=== PATIENT | male | born 1975 | race Caucasian/White ===

== ENCOUNTER 2020-11-19 14:57 | Outpatient (REF) | payer BC, OTHER, SELFPAY ==
[2020-11-19 18:19] LABS: MANUAL DIFF FLAG NO
[2020-11-19 18:22] LABS: Basophils Percent Auto 0.6 % (0-2); Eosinophils Absolute Auto 0.1 X10*3/uL (0.0-0.4); Hematocrit 45.2 % (42-52); Hemoglobin 15.6 g/dl (14.0-18.0); Imm Gran Abs Auto 0.01 X10*3/uL (0.00-0.03); Imm Gran Pct Auto 0.2 % (0.0-0.4); Lymphocytes Percent Auto 31.6 % (20-40); Mean Corpuscular HGB Conc 34.5 g/dl (31.0-36.0); Mean Corpuscular Hemoglobin 31.5 pg (27.0-33.0); Mean Corpuscular Volume 91.1 fL (80-98); Mean Platelet Volume 10.9 fL (9.4-12.4); Monocytes Absolute Auto 0.6 X10*3/uL (0.1-1.2); Monocytes Percent Auto 9.1 % (2-11); Neutrophils Absolute Auto 3.6 X10*3/uL (2.0-8.3); Neutrophils Percent Auto 56.5 % (45-73); Platelet Count 268 X10*3/uL (160-400); Red Blood Count 4.96 X10*6/uL (4.60-5.80); Red Cell Distribution Width 12.4 % (11.0-16.0); White Blood Count 6.5 X10*3/uL (4.8-10.8)
[2020-11-19 18:52] LABS: Alanine Aminotransferase 36 U/L (0-40); Albumin Level 4.4 g/dL (3.5-5.0); Alkaline Phosphatase 83 U/L (39-117); Anion Gap 14 (12-20); Aspartate Amino Transferase 21 U/L (5-37); Blood Urea Nitrogen 11 mg/dL (9-16); C Reactive Protein 0.29 mg/dL (< or = 0.50); Calcium 9.3 mg/dL (8.4-10.2); Carbon Dioxide 23 mmol/L (22-29); Chloride 106 mmol/L (96-108); Estimated Glomerular Filt Rate > 60; Glucose Random 82 mg/dL (60-115); Potassium 4.1 mmol/L (3.3-5.1); Sodium 139 mmol/L (135-145); Total Protein 7.2 g/dL (6.5-8.0)
[2020-11-19 19:14] LABS: Thyroid Stimulating Hormone 0.81 uIU/mL (0.32-4.0)
[2020-11-20 13:40] LABS: Immunoglobulin A 265 mg/dL (47-310)
[2020-11-20 21:46] LABS: Transglutaminase Ab IgG 1 U/mL; Transglutaminase IgA 1 U/mL
[2020-11-21 04:42] LABS: Gliadin Deamidated IgA Ab 6 Units; Gliadin Deamidated IgG Ab 2 Units
[2020-11-24 23:01] LABS: Endomysial IgA Antibody Negative (Negative)
== END 2020-11-19 14:58 | disposition home or self-care (01) ==
LOC: HO.MANLDS 14:57
PROVIDERS: PCP Physician Assistant; Visit Provider Physician Assistant
DX: R19.4 Change in bowel habit (principal)
CPT/HCPCS: 36415; 80053; 82784; 83516; 84443; 85025; 86140; 86255; 86256

== ENCOUNTER 2020-11-28 11:32 | Outpatient (REF) | payer BC, OTHER, SELFPAY ==
[2020-11-28 12:23] LABS: OBS1 NEGATIVE (NEGATIVE); OBS2 NEGATIVE (NEGATIVE)
[2020-11-28 12:24] LABS: OBS Int Ctl Valid YES; OBS3 NEGATIVE (NEGATIVE)
[2020-12-02 21:00] LABS: Calprotectin, Fecal 8 mcg/g
== END 2020-11-28 11:33 | disposition home or self-care (01) ==
LOC: HO.LNP 11:32
PROVIDERS: Visit Provider Physician Assistant
DX: R19.4 Change in bowel habit (principal)
CPT/HCPCS: 82270; 83993; 87045; 87046

== ENCOUNTER 2024-06-08 11:16 | Outpatient (REF) | payer BC, SELFPAY ==
--- OUTSIDE RECORDS SUMMARY | 2024-06-08 13:11 | XMS_ITS | Data Portability ---
Author Organization [facility] Home Service Address [address] [place] [address] Assessment Encounter Date Assessment Date Assessment LastModified by Organization Details LastModified Time 03/28/2020 03/28/2020 [id number] [place] [id number] (HOUSECLEANER) MDM MODERATE MUST MEET 2 OUT OF 3 ELEMENTS: PROBLEMS, DATA OR RISK ELEMENT 1: PROBLEMS ADDRESSED OR 2 OR MORE STABLE CHRONIC ILLNESSES OR 1 UNDIAGNOSED NEW PROBLEM OR OR ELEMENT 2: DATA MUST MEET 1 OF 3 CATEGORIES CATEGORY 1: REVIEW OF PRIOR EXTERNAL NOTES, REVIEW OF RESULTS, ORDERING OF EACH TEST, ASSESSMENT REQUIRING INDEPENDENT HISTORIAN OR CATEGORY 2: OR CATEGORY 3: ELEMENT 3: RISK RISK OF COMPLICATIONS AND/OR MORBIDITY OR MORTALITY OF PATIENT MANAGEMENT PROVIDER MUST THOROUGHLY DOCUMENT EACH ELEMENT THAT IS COVERED Not available 03/28/2020 15:03:49 06/08/2024 06/08/2024 discussed variou s supplements for wgt lifting and joint [place] [address] [place] [address] (HOUSECLEANER) MDM MODERATE MUST MEET 2 OUT OF 3 ELEMENTS: PROBLEMS, DATA OR RISK ELEMENT 1: PROBLEMS ADDRESSED 1 OR MORE CHRONIC ILLNESS WITH EXACERBATION OR 2 OR MORE STABLE CHRONIC ILLNESSES OR 1 UNDIAGNOSED NEW PROBLEM OR 1 ACUTE ILLNESS W/SYMPTOMS OR 1 ACUTE COMPLICATED INJURY ELEMENT 2: DATA MUST MEET 1 OF 3 CATEGORIES CATEGORY 1: REVIEW OF PRIOR EXTERNAL NOTES, REVIEW OF RESULTS, ORDERING OF EACH TEST, ASSESSMENT REQUIRING INDEPENDENT HISTORIAN OR CATEGORY 2: INDEPENDENT INTERPRETATION OF TESTS BY ANOTHER PHYSICIAN OR SPECIALIST OR CATEGORY 3: DISCUSSION OF MGT OR TEST INTERPRETATION W/EXTERNAL PHYSICIAN OR SPECIALIST ELEMENT 3: RISK RISK OF COMPLICATIONS AND/OR MORBIDITY OR MORTALITY OF PATIENT MANAGEMENT PROVIDER MUST THOROUGHLY DOCUMENT EACH ELEMENT THAT IS COVERED Not available 06/08/2024 11:10:17 Plan of Treatment Reminders Order Date Submit Date Provider Last Modified By Organization Details Last Modified Time Details Appointments FOLLOW UP 15 2024 10:45A M DR ASH Not available Not available Not available Lab lipid panel, blood 2024 025 [facility], [address] [place] [address], [id number], 06/08/2024 11:13:50 CMP, serum or plasma 2024 025 [facility], [address] [place] [address], [id number], 06/08/2024 11:13:49 CBC w/ auto diff 2024 025 [facility], [address] [place] [address], [id number], 06/08/2024 11:13:50 PSA, serum or plasma 2024 025 [facility], [address] [place] [address], [id number], 06/08/2024 11:13:50 lipid panel, blood 2022 023 [facility] (Centralized Electronic Ordering - All Locations), Patient Can Go To The Location Of Their Choice, 11/22/2022 12:25:26 CMP, serum or plasma 2022 023 [facility] (Centralized Electronic Ordering - All Locations), Patient Can Go To The Location Of Their Choice, 11/22/2022 12:25:26 CBC w/ auto diff 2022 023 [facility] (Centralized Electronic Ordering - All Locations), Patient Can Go To The Location Of Their Choice, 11/22/2022 12:25:25 PSA, serum or plasma 2022 023 [facility] (Centralized Electronic Ordering - All Locations), Patient Can Go To The Location Of Their Choice, [id number] 11/22/2022 12:25:25 hemoglobi n A1c, QN, blood 2022 023 [facility] (Centralized [facility] Ordering - All Locations), Patient Can Go To The Location Of Their Choice, [id number] 11/22/2022 12:25:25 CMP, serum or plasma 2020 [facility], [address] [place] [address], [id number], 11/20/2020 12:58:00 CBC w/ auto diff 2020 [facility], [address] [place] [address], [address], 11/19/2020 14:51:17 TSH, serum or plasma 2020 021 [facility], [address] [place] [address], [address], 11/20/2020 12:58:00 C-reactiv e protein, quantitat maikel, serum or plasma 2020 021 [facility], [address] [place] [address], [place], [address], 11/20/2020 12:58:00 celiac disease comprehen sive panel, serum 2020 [facility], [address] [place] [address], [address], 11/21/2020 11:53:34 culture, stool 2020 [facility], [address] [place] [address], [address], 12/01/2020 11:36:08 calprotec tin, stool 2020 [facility], [address] [place] [address], [address], 12/03/2020 11:30:47 fecal occult blood, stool 2020 [facility], [address] [place] [address], [place], [address], 12/01/2020 11:40:50 CBC w/ auto diff 2020 [facility], [address] [place] [address], [address], 03/28/2020 15:06:49 CMP, serum or plasma 2020 [facility], [address] [place] [address], [place], [address], 03/28/2020 15:06:49 lipase, serum or plasma 2020 021 [facility], [address] [place] [address], [address], 03/28/2020 15:06:49 amylase, serum or plasma 2020 [facility], [address] [place] [address], [address], 03/28/2020 15:06:49 Referral gastroent erologist referral - Dr Gonsales 2020 021 [facility], [address] [place] [address], [address], 11/21/2020 08:25:00 Procedures None recorded. Surgeries None recorded. Imaging CT, heart, w/o contrast, w/ coronary calcium score [email or web address] [facility], [facility] [place], [address], 06/08/2024 11:28:33 US, echocardi ogram, transthor acic, complete, w/ color flow [address] [facility], [facility] [place], [address], 06/08/2024 11:28:33 US, groin - left inguinal hernia [email or web address] [facility], [address] [place], [address], 11/23/2022 08:21:11 US, abdomen 2020 021 [email or web address] Not available 04/11/2020 11:01:52 Medication Orders escitalop rishabh 20 mg tablet 2022 023 [id number], [address] [place], [address], 11/22/2022 12:18:32 Medrol (Paulo) 4 mg tablets in a dose pack 2021 022 [place] [address] [id number], [address] [place], [address], 11/22/2022 12:05:14 Patient TargetsNo targets recorded. 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 Problems Name Problem SNOMED Code Status Onset Date Resolution Date Notes Provider Name and Address Organization Details Recorded Time Vertigo 963270934 Active 2017 Isaac Ash DO [address] [place], [address], [place] [facility] 8 16:00:19 Depressi ve disorder 55433503 Active 2018 ASHER Gore [address] [place], [address], [facility] 9 16:30:30 Otalgia of left ear 5715968907 Active 2021 LALITO LYON [address] [place], [address], [facility] 2 11:17:52 Left inguinal hernia 338595585 Active 2022 LALITO LYON [address] [place], [address], [facility] 3 12:12:03 Repair of patent ductus arterios us Completed 202406/08/2024 Isaac Ash DO [address] [place] [address], [address], [facility] 5 11:09:25 Dyspnea on exertion 22709463 Active 2024 Isaac Ash DO [address] [place] [address], [address], [facility] 5 11:09:47 Hypercho lesterol emia 73436665 [facility] 15:35:30 Problem Notes None recorded. Medical Equipment None Reported. Allergies No known drug allergies Medications Name Sig Start Date Stop Date Status Note LastModified by Organization Details LastModified Time amoxicillin 500 mg capsule 12/04 completed Not Available Not Available Not Available albuterol sulfate 2.5 mg/3 mL (0.083 %) solution for nebulizatio n 08/09 completed Not Available Not Available Not Available azithromyci n 250 mg tablet 08/09 completed Not Available Not Available Not Available ciprofloxac in 500 mg tablet Take 1 tablet every 12 hours by oral route for 10 days. 05/15 completed Not Available Not Available Not Available amoxicillin 500 mg tablet Take 1 tablet every 8 hours by oral route for 7 days. 12/04 completed Not Available Not Available Not Available Zofran 4 mg tablet Take 1 tablet twice a day by oral route as needed. 12/04 completed Not Available Not Available Not Available meclizine 25 mg tablet 08/09 completed Not Available Not Available Not Available benzonatate 100 mg capsule 08/09 completed Not Available Not Available Not Available prednisone 50 mg tablet 08/09 completed Not Available Not Available Not Available docusate sodium 100 mg capsule TAKE 1 CAPSULE BY MOUTH TWO TIMES A DAY 11/22 completed Not Available Not Available Not Available omeprazole 20 mg capsule,del ayed release TAKE TWO CAPSULES BY MOUTH EVERY DAY 11/22 completed Not Available Not Available Not Available methylpredn isolone 4 mg tablets in a dose pack USE DIRECTED BY MD OR PACKAGE INSTRUCTI ONS 11/22 completed Not Available Not Available Not Available morphine 15 mg immediate release tablet TAKE ONE TABLET BY MOUTH EVERY 6 HOURS NEEDED FOR PAIN 11/22 completed Not Available Not Available Not Available ondansetron 4 mg disintegrat ing tablet DISSOLVE ONE TABLET BY MOUTH EVERY 6 HOURS NEEDED FOR NAUSEA 11/22 completed Not Available Not Available Not Available oxycodone 5 mg tablet TAKE 1 TABLET BY MOUTH EVERY 4 HOURS NEEDED 11/22 completed Not Available Not Available Not Available escitalopra m 10 mg tablet TAKE 1 AND 1/2 TABLETS DAILY 11/19 completed Not Available Not Available Not Available escitalopra m 20 mg tablet TAKE 1 TABLET DAILY active Not Available Not Available No t Available Vitals Date Recorded Body weight Heart rate Oxygen saturation Oxygen saturation in Arterial blood by Pulse oximetry Systolic blood pressure Diastolic blood pressure Provider Name and Address Organization Details Last Updated DateTime 1 329020. 74 g 82 /min 97 % 97 % 124 mm[Hg] 76 mm[Hg] LALITO LYON [address] [place], [address] , [facility] 1 14:26:58 Date Recorded Body height Oxygen saturation Oxygen saturation in Arterial blood by Pulse oximetry Heart rate Systolic blood pressure Diastolic blood pressure Provider Name and Address Organization Details Last Updated DateTime 2 172.72 cm 98 % 98 % 80 /min 130 mm[Hg] 70 mm[Hg] Rita Gannon [facility] 2 10:58:14 Date Recorded Body weight Heart rate Oxygen saturation Oxygen saturation in Arterial blood by Pulse oximetry Systolic blood pressure Diastolic blood pressure Provider Name and Address Organization Details Last Updated DateTime 3 767310. 22 g 78 /min 99 % 99 % 122 mm[Hg] 84 mm[Hg] Carol Overton [facility] 3 12:08:03 Date Recorded Body height Body mass index (BMI) Body weight Heart rate Oxygen saturation Oxygen saturation in Arterial blood by Pulse oximetry Systolic blood pressure Diastolic blood pressure Provider Name and Address Organization Details Last Updated DateTime 5 172.72 cm 35.7 kg/m2 014642. 21 g 88 /min 98 % 98 % 144 mm[Hg] 68 mm[Hg] Isaac Ash, DO [address] [place], [address] 5 10:43:13 Social History Question Answer Notes LastModified by Organizat ion Details LastModified Time Tobacco Smoking Status Never Smoker Not Available [facility] 01/08/2020 03:36:24 What Was The Date Of Your Most Recent Tobacco Screening? 06/08/2024 Information not available 06/08/2024 Sex: Unknown Functional Status None recorded. Mental Status None recorded. Family History Relationship Description Onset Age of this Age Resolved Age Notes LastModified by Organization Details LastModified Time Father Family history of cancer of colon eszahira Not available 2017 13:30:25 Mother Type 2 diabetes mellitus [facility] Not available 2017 13:30:35 Medical History No medical history recorded. Immunizations Vaccine Type Date Status Note Provider Nam e and Address Organization Details Recorded Time COVID-19, mRNA, LNP-S, PF, 30 mcg/0.3 mL dose 07/21/2020 completed Not Available [facility] 3 11:29:10 COVID-19, mRNA, LNP-S, PF, 30 mcg/0.3 mL dose 08/14/2020 completed Not Available [facility] 3 11:29:10 Past Encounters Encounter ID Performer Location Encounter Start Date Encounter Closed Date Diagnosis/Indication Diagnosis SNOMED-CT Code Diagnosis ICD10 Code Diagnosis Note [id number] Mikayla Mckeon NP, S [facility] [address] [facility] [address] [address] 08/09/2017 15:23:21 08/10/2017 08:22:40 On examination - pupils unequal 135573221 H57.02 decreased peripheral vision, nausea, syncope, vertigo Syncope 677671898 R55 Nausea 586690167 R11.0 Vertigo 642407251 R42 await CT scan, continue prn meclizine [id number] Isaac Ash [facility] [address] [facility] [address] 01/20/2018 15:39:19 01/20/2018 16:07:45 Vertigo 828739397 R42 [id number] Isaac Ash [facility] [address] [facility] [place] [address] 03/10/2018 09:18:17 03/10/2018 11:18:59 Vertigo 592734958 R42 did not get any relief or help from PT worthless referral patsy newman we need to have him be shown how to do russ richardson etc Hypercholesterolemia 136 85278 E78.00 will need lab orderd Depressive disorder 0212 1287 F32.1 [id number] Namrata SofíaYANIQUEGIANCARLO [facility] [address] [facility] [address] 12/04/2018 16:01:57 12/04/2018 16:35:36 Pain in testicle 50049355 N50.819 Epididymitis 39933458 N4 5.1 Depressive disorder 3548 1867 F32.9 well controlled Hypercholesterolemia 136 74583 E78.00 working on diet Vertigo 581494549 R42 has been quiet for a little over a year [id number] Isaac Ahs [facility] [address] [facility] 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 Depressive disorder 4357 5607 F32.1 [id number] Isaac Ash DO [facility] [address] [facility] [address],[place] [address] 03/28/2020 09:18:28 03/31/2020 11:37:35 Abdominal pain 00711968 R10.9 will work up for the gall bladder Hypercholesterolemia 136 57485 E78.00 will need lab orderd Vertigo 742962079 R42 did not get any relief or help from PT worthless referral patsy newman we need to have him be shown how to do russ richardson etc Depressive disorder 2985 9831 F32.1 [id number] LALITO LYON [facility] [address] [facility] [address] [address] 11/19/2020 14:17:01 11/19/2020 15:52:52 Constipation 50251919 K59.00 will fu with GI referral as well for repeat colonoscop y Altered marcela wel function 00152396 R19.4 will start with lab workpull [place] [id number] LALITO LYON [facility] [address] [facility],[place] [address] 06/24/2021 10:51:43 06/24/2021 11:49:42 Otalgia of left ear 8987054888 H92.02 will start on medrol and sudafed [id number] LALITO LYON [facility] [address] [facility] [address] [address] 11/22/2022 11:56:13 11/22/2022 13:00:24 Left inguinal hernia 144962951 K40.90 agreed to US groin to confirm diagnosis Depressive disorder 5773 2147 F32.1 stable Hypercholesterolemia 136 72608 E78.2 will set up with routine lab work that he is due for [id number] Isaac Ash [facility] [address] [facility] [address],[place] [address] 06/08/2024 10:32:04 06/08/2024 11:28:33 Hypercholesterolemia 90114518 E78.2 will need lab orderd Depressive disorder 3547 106 F32.1 neg Dyspnea on exertion 6084 5006 R06.09 a Health Concerns Section Related Observation LastModified by Organization Detai ls LastModified Time None Recorded Concern Status LastModified by Organization Details LastModified Time None Recorded Advance Directives Directive None Recorded Payers Encounter Date Sequence Insurance Name Policy Number Policy Luque Covered Member ID Luque Member ID Guarantor Name 03/28/2020 1 [facility] [id number] Lindsay Rosalva [id number] Juan Evansak 03/28/2020 2 [facility] [id number] Juan Rosalva [id number] Juan Rosalva 11/19/2020 1 [place] [id number] Juan Rosalva [id number] Juan Rosalva 11/19/2020 2 [facility] [id number] Juan De Jesus Rosalva [id number] Juan Rosalva 06/24/2021 1 [place] [id number] Juan Rosalva [id number] Juan Rosalva 06/24/2021 2 [facility] [id number] Juan De Jesus Rosalva [id number] Juan Rosalva 11/22/2022 1 [place] [id number] Juan Rosalva [id number] Juan Rosalva 11/22/2022 2 [facility] [id number] 01 Juan De Jesus Rosalva [id number] Juan Rosalva 06/08/2024 1 [place] [id number] Juan Rosalva [id number] Juan Rosalva Notes Date Note Type Note Provider Name and Address Organization Details Recorded Time 03/28/19 21 text/htm l patient is evaluated via tele/video assessment per patient consent during current pandemic relates that he has had a pain in lower right side of chest wall sharp pain sudden onset comes and goes pain is located just below rib cage on right states has been relating that he has been eating a lousy diet has been having indigestion and bloated also certain foods might be affecting but not sure Isaac Ash, DO [address] [facility], [place], [address], [facility] 03/28/2020 15:04:44 11/20/19 21 text/htm l c/o change in bowel habits the patient reports that his father has a history of colon cancerstarted colonoscopy around 39 years old, has not had a repeat scan doneprobably needs it every 5 years given history the patient reports his stools are long and thin, dyeing machine back tender in colorhas a bowel movement about one to three times per dayhas been going for the past month prior to this he was going about once per daythe patient reports that no change in diet, no new foods no new medications or supplements the patient reports that he is straining to go to the bathroomthe patient noticed blood in the stool about a week ago, bright red blood per rectum no pain, no itching LALITO LYON [address] [place], [address], [facility] 11/19/2020 14:55:18 06/25/19 22 text/htm l c/o left ear pain the patient reports that his left ear has been bothering him since Tuesdaythe patient reports that crackling in the left ear and painthe patient denies hearing loss the patient reports pain in the left earright ear is fine has tried OTC ear drops and hydrogen peroxide without affect LALITO LYON [address] [place], [address], [facility] 06/24/2021 11:28:53 11/23/19 23 text/htm l c/o left sided groin pain reports new onset groin pain for the last 6 daysno excess weight liftingleft side inguinal noted hernia of the left sidesmall, presents more with straining with valsalva maneuver agreed to US to confirm diagnosis LALITO LYON [address] [place], [address], [facility] 11/22/2022 12:22:10 06/09/19 25 text/htm l Care Management - HyperlipidemiaReported bypatient.Control:usually well controlled; improving; at goal Complications:no coronary artery disease; no heart attack; no cardiovascular disease; no pancreatitis; no stroke relates that he has been doing well overall but has noticed that he has had a few episodes of severe sob when he really pushed it Isaac Ash, DO [address] [facility], [place], [address], [facility] 06/08/2024 11:14:47
--- OUTSIDE RECORDS SUMMARY | 2024-06-08 13:11 | XMS_ITS | Continuity of Care Document ---
Author Organization [facility], [facility] Address [address] [place] [address] Assessment Encounter Date Assessment Date Assessment LastModified by Organization Details LastModified Time 06/08/2024 06/08/2024 discussed variou s supplements for wgt lifting and [place] [address] [place] [address] (CIVIL CADD TECHNICIAN) MDM MODERATE MUST MEET 2 OUT OF [...] available Lab lipid panel, blood 2024 025 [facility], [address] [place] [address], [place], [address], 06/08/2024 11:13:50 CMP, serum or plasma 2024 025 [facility], [address] [place] [address], [address], 06/08/2024 11:13:49 CBC w/ auto diff 2024 025 [facility], [address] [facility], [place], [address], 06/08/2024 11:13:50 PSA, serum or plasma 2024 025 [facility], [address] [facility], [place], [address], 06/08/2024 11:13:50 Referral None recorded. Procedures None recorded. Surgeries None recorded. Imaging CT, heart, w/o contrast, w/ coronary calcium score 2024 025 [email or web address] [facility], [address] [place], [address], 06/08/2024 11:28:33 US, echocardi ogram, transthor acic, complete, w/ color flow 2024 025 [email or web address] [facility], [address] [place], [address], 06/08/2024 11:28:33 Medication Orders None recorded. Patient TargetsNo targets recorded. Patient InstructionsNo instructions recorded. Reason for Referral None Reported. Problems Name Problem SNOMED Code Status Onset Date Resolution Date Notes Provider Name and Address Organization Details Recorded Time Vertigo 757204491 Active 2017 Isaac Ash DO [address] [place], [address], [facility] 8 16:00:19 Depressi ve disorder 10292206 Active 2018 ASHER Gore [address] [place], [address], [facility] 9 16:30:30 Otalgia of left ear 1227249527 Active 2021 LALITO LYON [address] [place], [address], [facility] 2 11:17:52 Left inguinal hernia 001659561 Active 2022 LALITO LYON [address] [place], [address], [facility] 3 12:12:03 Repair of patent ductus arterios us Completed 202406/08/2024 Isaac Ash, DO [address] [place], [address], [facility] 5 11:09:25 Dyspnea on exertion 32600019 Active 2024 Isaac Ash, [address] [place], [address], [facility] 5 11:09:47 Hypercho lesterol emia 96229576 [facility] 8 15:35:30 Problem Notes None recorded. Medical [...] No t Available Vitals Date Recorded Body height Body mass index (BMI) Body weight Heart rate Oxygen saturation Oxygen saturation in Arterial blood by Pulse oximetry Systolic blood pressure Diastolic blood pressure Provider Name and Address Organization Details Last Updated DateTime 5 172.72 cm 35.7 kg/m2 060598. 21 g 88 /min 98 % 98 % 144 mm[Hg] 68 mm[Hg] Isaac Ash, DO [address] [place], [address] [place] [address] Internal Medicine 5 10:43:13 Social History Question Answer Notes LastModified by Organizat ion Details LastModified Time Tobacco Smoking Status Never Smoker Not Available [facility] 01/08/2020 03:36:24 What Was The Date Of Your Most Recent Tobacco Screening? 06/08/2024 Information not available 06/08/2024 Sex: Unknown Functional Status None recorded. Mental Status None recorded. Family History Relationship Description Onset Age of this Age Resolved Age Notes LastModified by Organization Details LastModified Time Father Family history of cancer of colon arlet Not available 2017 13:30:25 Mother Type 2 diabetes mellitus arlet Not available 2017 13:30:35 Medical History No medical history recorded. Immunizations Vaccine Type Date Status Note Provider Nam e and Address Organization Details Recorded Time COVID-19, mRNA, LNP-S, PF, 30 mcg/0.3 mL dose 07/21/2020 completed Not Available [facility] 3 11:29:10 COVID-19, mRNA, LNP-S, PF, 30 mcg/0.3 mL dose 08/14/2020 completed Not Available [facility] 3 11:29:10 Past Encounters Encounter ID Performer Location Encounter Start Date Encounter Closed Date Diagnosis/Indication Diagnosis SNOMED-CT Code Diagnosis ICD10 Code Diagnosis Note [id number] Isaac Ash DO [facility] [address] [facility],[place] [address] 06/08/2024 10:32:04 06/08/2024 11:28:33 Hypercholesterolemia 67128124 E78.2 will need lab orderd Depressive disorder 3548 9007 F32.1 neg Dyspnea on exertion 6084 5006 R06.09 a Health Concerns Section Related Observation LastModified by Organization Detai ls LastModified Time None Recorded Concern Status LastModified by Organization Details LastModified Time None Recorded Payers Encounter Date Sequence Insurance Name Policy Number Policy Luque Covered Member ID Luque Member ID Guarantor Name 06/08/2024 1 [place] [place] [id number] Juan Blackwell [id number] Juan Blackwell Notes Date Note Type Note Provider Name and Address Organization Details Recorded Time 06/09/19 25 text/htm l Care Management - HyperlipidemiaReported bypatient.Control:usually well controlled; improving; at goal Complications:no coronary artery disease; no heart attack; no cardiovascular disease; no pancreatitis; no stroke relates that he has been doing well overall but has noticed that he has had a few episodes of severe sob when he really pushed it Isaac Ash DO [address] [place] [address], [address], [facility] 06/08/2024 11:14:47
--- OUTSIDE RECORDS SUMMARY | 2024-06-08 13:11 | XMS_ITS | Data Portability ---
Author Organization [facility], , [facility] Address [address] [place] [address] Assessment No assessment recorded. Plan of Treatment Reminders Order Date Submit Date Provider Last Modified By Organization Details Last Modified Time Details Appointments None record ed. Lab None record ed. Referral None record ed. Procedures None record ed. Surgeries None record ed. Imaging None record ed. Medication Orders None record ed. Patient TargetsNo targets recorded. Patient InstructionsNo instructions recorded. Reason for Referral None Reported. Results Created Date Observation Date Name Description Value Unit Range Abnormal Flag Note LastModifiedBy Organization Detail LastModifiedTime Result Notes None recorded. Procedures Surgical History Date Name Laterality Status Provider Name and Address Organization Details Recorded Time Zi Gonsales - Colonoscopy completed Arpit Gonsales MD [address] [place] [address], [phone], [facility] 12/03/2015 11:49:03 Zi Gonsales - Upper Endoscopy completed Arpit Gonsales MD [address] [place] [address], [phone], [facility] 12/03/2015 11:47:30 Imaging Results None recorded. Procedure Notes None recorded. Medical Equipment None Reported. Vitals None Recorded Social History None recorded. Functional Status None recorded. Mental Status None recorded. Family History Nothing Reported. Medical History No medical history recorded. Past Encounters Encounter ID Performer Location Encounter Start Date Encounter Closed Date Diagnosis/Indication Diagnosis SNOMED-CT Code Diagnosis ICD10 Code Diagnosis Note [id number] Arpit Gonsales MD [facility], [address] [address] 12/03/2015 10:32:44 12/03/2015 13:33:53 Health Concerns Section Related Observation LastModified by Organization Detai ls LastModified Time None Recorded Concern Status LastModified by Organization Details LastModified Time None Recorded Advance Directives Directive None Recorded Payers Encounter Date Sequence Insurance Name Policy Number Policy Luque Covered Member ID Luque Member ID Guarantor Name 12/03/2015 1 [facility] [id number] Juan Blackwell [id number] Juan Blackwell
[2024-06-08 13:36] LABS: MANUAL DIFF FLAG NO
[2024-06-08 13:42] LABS: Basophils Absolute Auto 0.1 X10*3/uL (0.0-0.2); Basophils Percent Auto 0.6 % (0-2); Eosinophils Absolute Auto 0.2 X10*3/uL (0.0-0.4); Eosinophils Percent Auto 1.6 % (0-4); Hematocrit 46.6 % (42.0-52.0); Hemoglobin 15.7 g/dl (14.0-18.0); Imm Gran Abs Auto 0.02 X10*3/uL (0.00-0.03); Imm Gran Pct Auto 0.2 % (0.0-0.4); Lymphocytes Absolute Auto 1.9 X10*3/uL (1.2-4.9); Lymphocytes Percent Auto 20.7 % (20-40); Mean Corpuscular HGB Conc 33.7 g/dl (31.0-36.0); Mean Corpuscular Hemoglobin 30.8 pg (27.0-33.0); Mean Corpuscular Volume 91.4 fL (80.0-98.0); Mean Platelet Volume 10.5 fL (9.4-12.4); Monocytes Absolute Auto 0.8 X10*3/uL (0.1-1.2); Monocytes Percent Auto 8.5 % (2-11); Neutrophils Absolute Auto 6.4 x10*3/uL (2.0-8.3); Neutrophils Percent Auto 68.4 % (45-73); Platelet Count 305 X10*3/uL (160-400); Red Cell Distribution Width 12.5 % (11.0-16.0); White Blood Count 9.4 X10*3/uL (4.8-10.8)
[2024-06-08 14:08] LABS: Alanine Aminotransferase 39 U/L (0-40); Albumin Level 4.3 g/dL (3.5-5.0); Alkaline Phosphatase 94 U/L (39-117); Anion Gap 11 (12-20); Aspartate Amino Transferase 26 U/L (5-37); Bilirubin Total 0.5 mg/dL (0.0-1.0); Blood Urea Nitrogen 30 mg/dL (9-16); Calcium 9.5 mg/dL (8.4-10.2); Carbon Dioxide 22 mmol/L (22-29); Chloride 112 mmol/L (96-108); Cholesterol 176 mg/dL (<200); Estimated Glomerular Filt Rate > 60; Glucose Random 92 mg/dL (60-115); HDL Cholesterol 33 mg/dL (>40); LDL Cholesterol Calculated 106 mg/dL (<100); Potassium 4.4 mmol/L (3.3-5.1); Sodium 141 mmol/L (135-145); Total Protein 7.3 g/dL (6.5-8.0); Triglycerides 187 mg/dL (<150)
[2024-06-08 14:47] LABS: Prostate Specific Antigen 1.18 ng/mL (<0.05-4.0)
== END 2024-06-08 11:17 | disposition home or self-care (01) ==
LOC: HO.MANLDS 11:16
PROVIDERS: Visit Provider Internal Medicine
DX: Z12.5 Encounter for screening for malignant neoplasm of prostate (principal); E78.2 Mixed hyperlipidemia
CPT/HCPCS: 36415; 80053; 80061; 84153; 85025